=== PATIENT | female | born 1965 | race Caucasian/White ===

== ENCOUNTER 2017-07-06 11:51 | Outpatient (CLI) | payer OTHER ==
--- NOTE | 2017-07-06 14:40 | RAD ---
PA AND LATERAL CHEST XRAY: DTE: 07/06/17. History Cough. COMPARISON: 09/06/11. FINDINGS: Cardiac silhouette and pulmonary vasculature are within normal limits. Lungs remain clear. There culp s been no interval change compared to the prior exam. IMPRESSION: No acute cardiopulmonary process. POS: [facility]
== END 2017-07-06 11:52 | disposition home or self-care (01) ==
LOC: RAD 11:51
PROVIDERS: ATTEND Family Medicine
DX: R05 Cough (principal)
CPT/HCPCS: 71020

== ENCOUNTER 2018-09-21 08:00 | Outpatient (CLI) | payer OTHER ==
--- NOTE | 2018-09-21 09:57 | ULT ---
LIMITED RIGHT BREAST ULTRASOUND: Date: 09-21-18 Provided Clinical History: Right breast palpable abnormalities. FINDINGS: Limited sonographic interrogation was performed of the right breast and right axilla in the regions o f palpable concern. The sonographic appearance of the tissue in these regions is normal. IMPRESSION: BIRADS category 2 - benign findings. Negative or benign imaging findings should preclude further eval uation of a clinically suspicious area. The patient is referred back to her clinician. POS: OFF
== END 2018-09-21 08:01 | disposition home or self-care (01) ==
LOC: BICMAMMO 08:00
PROVIDERS: ATTEND Family Medicine
DX: N63.10 Unspecified lump in the right breast, unspecified quadrant (principal)
CPT/HCPCS: 77066; G0279

== ENCOUNTER 2018-11-25 07:04 | Emergency (ER) | payer OTHER ==
[2018-11-25] MEDS ORDERED: Ondansetron PF 4 MG/2 ML Vial ONE (07:26)
[2018-11-25] MEDS ORDERED: Ketorolac Tromethamine 30 MG/ML VIAL ONE (09:10)
[2018-11-25] MEDS ORDERED: Promethazine HCl 25 MG/ML VIAL ONE (09:39)
[2018-11-25] MEDS ORDERED: diphenhydrAMINE 25 MG CAP ONE (10:28)
[2018-11-25] MEDS ORDERED: Metoclopramide HCl 10 MG/2 ML VIAL ONE (10:28)
== END 2018-11-25 11:43 | disposition home or self-care (01) ==
LOC: SCSER 07:04
DX: R11.2 Nausea with vomiting, unspecified (principal); R19.7 Diarrhea, unspecified; F32.9 Major depressive disorder, single episode, unspecified; Z79.899 Other long term (current) drug therapy
CPT/HCPCS: 96361; 96365; 96367; 96375; J1885; J2405; J2550; J2765; Q0163

== ENCOUNTER 2019-06-12 17:59 | Emergency (ER) | payer OTHER ==
[2019-06-12] MEDS ORDERED: Bacitracin 1 PK ONE (18:23)
[2019-06-12] MEDS ORDERED: Lidocaine 4% Cream 5 GM TUBE w/ Tegaderm ONE (18:23)
[2019-06-12] MEDS ORDERED: HYDROcodone/Acetaminophen 5/325 mg Tablet ONE (18:27)
== END 2019-06-12 18:46 | disposition home or self-care (01) ==
LOC: SCSER 17:59
DX: T23.232A Burn of second degree of multiple left fingers (nail), not including thumb, initial encounter (principal); T31.0 Burns involving less than 10% of body surface; F32.9 Major depressive disorder, single episode, unspecified; X19.XXXA Contact with other heat and hot substances, initial encounter
CPT/HCPCS: 16020

== ENCOUNTER 2019-12-28 10:23 | Outpatient (CLI) | payer OTHER ==
[~2019-12-28 10:23] MED LIST: Magnevist 469MG/ML 20 ML VIAL ONE
--- NOTE | 2019-12-28 11:10 | MMO ---
Bilateral MAMMO Bilat Screen [facility]. CLINICAL HISTORY: Patient is 54 years old and is seen for screening. The patient has no family history of breast cancer. The patient has no personal history of cancer. VIEWS: The views performed were: bilateral craniocaudal with tomosynthesis and bilateral mediolateral oblique with tomosynthesis. FILMS COMPARED: The present examination has been compared to prior imaging studies performed at 09/21/2013 and 09/21/2018. This study has been interpreted with the assistance of computer-aided detection. MAMMOGRAM FINDINGS: The breasts are heterogeneously dense, which could obscure a lesion on mammography. There are stable benign appearing calcifications seen in both breasts. There are also vascular calcifications. There are no suspicious masses, suspicious calcifications, or new areas of architectural distortion. IMPRESSION: THERE IS NO MAMMOGRAPHIC EVIDENCE OF MALIGNANCY. A ROUTINE FOLLOW-UP MAMMOGRAM IN 1 YEAR IS RECOMMENDED. THE RESULTS OF THIS EXAM WERE SENT TO THE PATIENT. ACR BI-RADS Category 2 - Benign finding MAMMOGRAPHY NOTE: 1. A negative mammogram report should not delay a biopsy if a dominant of clinically suspicious mass is present. 2. Approximately 10% to 15% of breast cancers are not detected by mammography. 3. Adenosis and dense breasts may obscure an underlying neoplasm. Reported by: RODRICK SUE MD Electonically Signed: [id number]
--- NOTE | 2019-12-28 12:01 | MRI ---
MRI brain without and with gadolinium contrast HISTORY: Left-sided headache. FINDINGS: There is no evidence of acute intracranial hemorrhage or infarct. The ventricles appear nor mal in size, shape and position. There is no mass effect or shift of midline structures. Orbits are unremarkable. Visualized paranasal sinuses remain well aerated. IMPRESSION : No abnormalities are demonstrated.
== END 2019-12-28 10:24 | disposition home or self-care (01) ==
LOC: BICMAMMO 10:23
PROVIDERS: ATTEND Family Medicine
DX: Z12.31 Encounter for screening mammogram for malignant neoplasm of breast (principal); R51 Headache
CPT/HCPCS: 70553; 77063; 77067; A9579

== ENCOUNTER 2022-04-29 15:14 | Outpatient (CLI) | payer BC | END 2022-04-29 15:15 | disposition home or self-care (01) | LOC: BICRAD 15:14 | PROVIDERS: ATTEND Family Medicine | DX: S63.602A Unspecified sprain of left thumb, initial encounter (principal) ==